=== PATIENT | male | born 1965 | race African-American/Black ===

== ENCOUNTER 2021-09-21 09:31 | Inpatient (IN) | payer OTHER ==
[2021-09-21] VITALS (21 sets, daily range): BP systolic 92–130; BP diastolic 52–91
[~2021-09-21] VITALS: Ht 170.2 cm; Wt 50.5 kg
--- NOTE | ~2021-09-21 | EMS ---
[address] [address] EMS Patient Care Report Name: ELINOR FLORES Room #: REG LEANN Saeed#: [id number] Admission: 09/21/21 Attend Phys: Discharge: Date of : 69 Report #: [id number] THIS REPORT FOR: //name// Report Transmitted: 09/21/2021 12:08 EMS Care Summary [place], [place]/[facility] Incident [id number] @ 09/21/2021 08:58 Incident Location [id number] [place] [address] 513 Patient ELINOR FLORES Male, 56 Years 1965 Patient Address [address] [place] [address] [address] [place] [address] Patient History Diabetes,Gastro-Esophageal Reflux Disease (GERD),Anemia,Dialysis, Patient Allergies No known allergies, Chief Complaint chills Disposition Transported No Lights/[place] Dispatch Reason Overdose/Poisoning/Ingestion Transported To [facility] Narrative pt found in bed a&o. pt is a dialysis pt that went to dialysis this AM but they stopped tx 1 hr in b/c pt was shivering too much. pt does not have fever but is shivering uncontrollably. he states he has no other symptoms. pt did have a syncopal episode from a standing position approx 5 hours ago but he did not go to ER, he refused. pt now agrees to go only because, "I'm done [address] [address] EMS Patient Care Report Name: ELINOR FLORES Room #: REG M.R.#: [id number] Admission: 09/21/21 Attend Phys: Discharge: Date of : 69 Report #: [id number] sleeping and they keep saying I need to go". Pt to cot, tx as listed in flow chart. transport w/o change. report to engineering secretary. 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,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: 2 Device: Nasal Cannula (NC) Response: UnchangedSucceeded, 08:55,Call Received 08:55,Dispatch Notified 08:58,Dispatched 08:59,En Route 09:03,On Scene 09:05,At Patient 09:05,Stretcher,Response: Unchanged 09:05,ALS Assessment,Response: Unchanged 09:08,BP: 106/67 M,PULSE: 115,RR: 22 R,SPO2: 95 Ox,ETCO2: ,B,PAIN: 0,GCS: 15, 09:13,3-Lead ECG,Response: Unchanged 09:14,IV Therapy - Saline Lock 10cc 20 ga Site: Hand-Left,Response: UnchangedSucceeded, 09:16,Depart Scene 09:24,At Destination 09:39,Call Closed Disclaimer v1.1 Copyright 2020 [employer] This EMS Care Summary contains data elements from the applicable legal record (which may be displayed differently). It is designed to provide pertinent [facility] [address] [place] [address] EMS Patient Care Report Name: ELINOR FLORES Room #: REG [facility].#: [id number] Admission: 09/21/21 Attend Phys: Discharge: Date of : 69 Report #: [id number] information for the following purposes: continuity of care, clinical quality, and state data reporting. The complete legal record is available to ED staff and administrators of the receiving hospital in [employer] Patient Tracker. All data is provided "as is."
[2021-09-21 11:10] LABS: ABSOLUTE NEUTROPHILS 11.5 thou/uL (1.4-8.2); BASOPHILS 0.7 % (0.0-2.0); HEMATOCRIT 31.7 % (42.0-52.0); HEMOGLOBIN 9.9 gm/dL (14.0-18.0); LYMPHOCYTES 5.1 % (24.0-44.0); MCHC 31.1 g/dL (28.0-37.0); MCV 93.1 fL (80.0-100.0); MONOCYTES 3.1 % (1.0-8.0); PLATELET COUNT 95 thou/uL (150-400); POLYS 91.1 % (36.0-66.0); RDW 15.4 % (10.5-14.5); WBC 12.6 thou/uL (4.0-11.0)
[2021-09-21 11:22] LABS: CREATININE 9.5 mg/dL (0.7-1.3); POTASSIUM 5.7 mmol/L (3.5-5.1)
[2021-09-21 11:27] LABS: APTT 37.5 Seconds (24.5-32.8); INR 1.08; PROTIME 11.7 Seconds (10.5-12.1)
[2021-09-21 11:32] LABS: TOTAL BILIRUBIN 0.4 mg/dL (0.2-1.0); TOTAL PROTEIN 7.8 g/dL (6.4-8.2)
[2021-09-21 12:03] LABS: URINE BILIRUBIN NEGATIVE (Negative); URINE BLOOD 3+ (Negative); URINE CLARITY CLEAR; URINE COLOR YELLOW; URINE GLUCOSE-RANDOM* 1+ (Negative); URINE KETONES NEGATIVE (Negative); URINE LEUKOCYTES-REFLEX NEGATIVE (Negative); URINE NITRITE-REFLEX NEGATIVE (Negative); URINE PROTEIN (DIPSTICK) 2+ (Negative); URINE SPECIFIC GRAVITY 1.025 (1.005-1.035); URINE UROBILINOGEN 0.2 E.U./dl (0.2-1.0)
[2021-09-21 12:17] LABS: SQUAMOUS 4-10 Moderate /LPF (0-3)
[2021-09-21 12:18] LABS: CASTS None Seen /LPF (None Seen); URINE WBC-REFLEX 0-5 Rare /HPF (0-5)
[2021-09-21 12:19] LABS: BACTERIA-REFLEX 1-9 Few /HPF (None Seen); CRYSTALS None Seen /LPF (None Seen)
[2021-09-21] MEDS ORDERED: SODIUM BICARBO650 M3 PO (13:48)
[2021-09-21] MEDS ORDERED: RENVELA0.8 GM PO (13:48)
[2021-09-21] MEDS ORDERED: LIPITOR40 MG PO (13:49)
[2021-09-21] MEDS ORDERED: OMEPRAZOLE40 MG PO (13:49)
[2021-09-21] MEDS ORDERED: GABAPENTIN100 MG PO (13:49)
[2021-09-21] MEDS ORDERED: LOPERAMIDE2 MG PO (13:49)
[2021-09-21] MEDS ORDERED: IPRAT-ALBUT 0.5-3 ML INH (13:49)
[2021-09-21] MEDS ORDERED: IRON325 M1 PO (13:50)
[2021-09-21] MEDS ORDERED: TYLENOL325 MG PO (13:51)
[2021-09-21] MEDS ORDERED: FLOMAX0.4 MG PO (13:51)
[2021-09-21] MEDS ORDERED: LANTUS SUBQ (13:51)
--- NOTE | 2021-09-21 15:44 | EKG ---
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
[2021-09-21 16:57] LABS: FOLIC ACID 14.5 ng/mL (8.6-58.9)
[2021-09-21 17:28] LABS: % SATURATION 14 % (20-39); IRON 24 ug/dL (65-175); TIBC 170 ug/dL (250-450)
--- NOTE | 2021-09-21 18:15 | NUR ---
VAT CONSULTED FOR CVL PLACEMENT. LEFT 6FR TL JACC CATHETER INSERTED, X1 STICK. ALL 3 LUMENS FLUSH AND RETURN BLOOD. AWAITING CXR FOR TIP LOCATION. PT TOLERATED WELL. TRIMMED 20CM/2CM EXTERNAL.
--- NOTE | 2021-09-21 19:16 | NUR ---
RADIOLOGY REPORT CVL TIP OVERLIES JUST DISTAL TO [facility]. RELEASED LINE, PER HOSPITAL VASCULAR ACCESS POLICY.
--- NOTE | 2021-09-21 19:20 | NUR ---
PT ARRIVED FROM ER VIA CART. PT WAS ON RA, APPEARED TO HAVE MOMENTS OF CONFUSION. PT WAS CONNECTED TO ICU MONITOR AND ASSESSED PER ICU PROTOCOL. LIQUID GREEN STOOL NOTED. TEMP 103 ON ARRIVAL TO ICU.
[2021-09-22] VITALS (37 sets, daily range): BP systolic 64–218; BP diastolic 27–187
--- NOTE | 2021-09-22 00:48 | NUR ---
PT TRANSFERED TO AND FROM CT VIA WHEELCHAIR WITH NO COMPLICATIONS.
[2021-09-22 05:35] LABS: HEMATOCRIT 28.1 % (42.0-52.0); HEMOGLOBIN 9.1 gm/dL (14.0-18.0); MCHC 32.3 g/dL (28.0-37.0); MCV 92.7 fL (80.0-100.0); PLATELET COUNT 91 thou/uL (150-400); RBC 3.03 mil/uL (4.50-6.00); RDW 15.3 % (10.5-14.5); WBC 8.2 thou/uL (4.0-11.0)
[2021-09-22 05:44] LABS: CALCIUM 8.5 mg/dL (8.5-10.1); CREATININE 10.4 mg/dL (0.7-1.3); MAGNESIUM 2.2 mg/dL (1.8-2.4)
[2021-09-22 06:04] LABS: POTASSIUM 6.1 mmol/L (3.5-5.1)
[2021-09-22 06:07] LABS: GLYCOHEMOGLOBIN (HGB A1C) 8.1 % (4.8-5.6)
[2021-09-22 07:18] LABS: ABSOLUTE NEUTROPHILS 7.2 thou/uL (1.4-8.2); ANISOCYTOSIS 1+; PLATELET ESTIMATE DECREASED; POIKILOCYTOSIS 1+
--- NOTE | 2021-09-22 09:52 | NUR ---
ASSUMED CARE OF PT AT 0700 CASE MANAGEMENT CALLED AND SPOKE TO THE FACILITY AND THEY WANTED US TO KNOW HE IS PRONE TO HAVING SEIZURES.
--- NOTE | 2021-09-22 12:06 | NUR ---
Case opened to follow for dc planning. Pt is currently in ICU with sepsis/uti/esrd. He is a [facility] care resident at [facility]. He would like cm to contact his brother to advise of his admission. Message left for his brother Ricardo. Clinical updated faxed to [facility] admissions and they confirmed they are holding his bed. He is a dialysis pt and dialyzes at their onsite [facility]. He is up ad nelson at the facility and has had his two covid vaccines. 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 The facility also notes he has had issues with seizures. Medically team updated in rounds. Will follow.
[2021-09-23] VITALS (35 sets, daily range): BP systolic 79–162; BP diastolic 51–110
--- NOTE | 2021-09-23 06:45 | NUR ---
Patient making some progress towards outcome goals. Vital signs and rhythm stable. Stool negative for cdiff. Incontinent loose stools. Planned insertion of temporary dialysis catheter.
--- NOTE | 2021-09-23 07:06 | EKG ---
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
--- NOTE | 2021-09-23 12:22 | NUR ---
PT IS SCHD FOR CVC PLACEMENT VIA IR; HE REMAINS NPO UNTIL THE CVC INSERTION. THIS RN CALLS IR FOR AN UPDATE ON THE SCHD BUT THEY ARE NOT READY AT THIS TIME.
--- NOTE | 2021-09-23 12:47 | 2DMMODE ---
[facility] [place] [address] 2 D/M-MODE ECHOCARDIOGRAM Name: ELINOR FLORES Room #: 239-P ADM IN M.R.#: [id number] Admission: 09/21/21 Attend Phys: Steffanie Jacques MD Discharge: Date of : 69 Report #: [id number] THIS REPORT FOR: cc: Chato Thorpe MD, Srinath MD Lundgren,Sukumar Arita MD [facility] ~ APPROVED REPORT Study performed: 09/23/2021 10:26:31 EXAM: Comprehensive 2D, Doppler, and color-flow Echocardiogram Patient Location: ICU Room #: 239 Status: routine BSA: 1.66 HR: 97 bpm BP: 133/88 mmHg Rhythm: NSR Other Information Study Quality: Good Indications Febrile, tachycardia, sepsis, bacteremia. Hx: ESRD, COPD, DM. 2D Dimensions IVSd: 9.04 (7-11mm) LVOT Diam: 19.90 (18-24mm) LVDd: 47.61 mm PWd: 9.25 (7-11mm) Ascending Ao: 25.23 (22-36mm) LVDs: 36.93 (25-40mm) Left Atrium: 35.49 (27-40mm) Aortic Root: 31.17 mm Volumes Left Atrial Volume (Systole) Single Plane 4CH: 39.56 mL Single Plane 2CH: 43.89 mL LA ESV Index: 28.00 mL/m2 Aortic Valve AoV Peak Dexter.: 1.21 m/s AO Peak Gr.: 5.87 mmHg LVOT Max P.24 mmHg LVOT Max V: 0.90 m/s ROQUE Vmax: 2.31 cm2 [facility] [address] [place] [address] 2 D/M-MODE ECHOCARDIOGRAM Name: ELINOR FLORES Room #: 239-P [facility]#: [id number] Admission: 09/21/21 Attend Phys: Zach Luis Discharge: Date of : 69 Report #: [id number] Mitral Valve E/A Ratio: 0.8 MV Decel. Time: 156.98 ms MV E Max Dexter.: 0.72 m/s MV A Dexter.: 0.91 m/s MV PHT: 45.53 ms IVRT: 71.51 ms Pulmonary Valve PV Peak Dexter.: 0.81 m/s PV Peak Gr.: 2.65 mmHg Tricuspid Valve TR Peak Dexter.: 2.44 m/s RAP Estimate: 5.00 mmHg TR Peak Gr.: 24.00 mmHg PA Pressure: 29.00 mmHg Left Ventricle The left ventricle is normal size. There is normal LV segmental wall motion. There is normal left ventricular wall thickness. The left ventricular systolic function is normal. LVEF is 50-55%. Mild diastolic dysfunction Right Ventricle The right ventricle is normal size. The right ventricular systolic function is normal. Atria The left atrium size is normal. The right atrium size is normal. Several ovoid, irregular bordered masses within right atrium, largest 1.9cm in diameter. Some masses are fixed and adherent to right atrial free wall, others are highly mobile. Findings most consistent with thromus. Aortic Valve The aortic valve is normal in structure, trileaflet No aortic regurgitation is present. There is no aortic valvular stenosis. Mitral Valve The mitral valve is normal in structure. Mild mitral regurgitation. Tricuspid Valve The tricuspid valve is normal in structure. Trace tricuspid regurgitation. Estimated pulmonary artery pressure of [facility] [address] [place] [address] 2 D/M-MODE ECHOCARDIOGRAM Name: ELINOR FLORES Room #: 239-P ADM IN ..#: [id number] Admission: 09/21/21 Attend Phys: Zach Luis Discharge: Date of : 69 Report #: [id number] 30mmHg. Pulmonic Valve The pulmonary valve is normal in structure. Trace pulmonic regurgitation. Great Vessels The aortic root is normal in size. The ascending aorta is normal in size. IVC is normal in size and collapses >50% with inspiration. Pericardium Trace pericardial effusion. Critical Notification Critical Value: Yes Physician Notified Date: 09/23/2021 <Conclusion> The left ventricular systolic function is normal. There is normal LV segmental wall motion. LVEF is 50-55%. Mild diastolic dysfunction The right atrium size is normal. Several ovoid, irregular bordered masses within right atrium, largest 1.9cm in diameter. Some masses are fixed and adherent to right atrial free wall, others are highly mobile. Findings most consistent with thromus. The aortic valve is normal in structure, trileaflet. No aortic regurgitation or stenosis The mitral valve is normal in structure. Mild mitral regurgitation. Trace tricuspid regurgitation. Estimated pulmonary artery pressure of 30mmHg. Trace pericardial effusion. <ELECTRONICALLY SIGNED> By: Sukumar Serrano MD, FACC 09/23/21 1246 1246 1246 Sukumar Serrano MD, FACC /INF
--- NOTE | 2021-09-23 12:55 | NUR ---
PT HAS HEPARIN DRIP ORDERED PER CARDIOLOGY FOLLOWING RESULTS FROM AN ECHO THIS AM. VINICIO MIRANDA REQUESTS THE HEPARIN TO BE PLACED ON HOLD UNTIL THE CVC FOR HD IS PLACED IN IR. CARDIOLOGY IS NOTIFIED OF THIS REQUEST AND GIVES ORDERS TO HOLD HEPARIN UNTIL THE CVC IS PLACED.
--- NOTE | 2021-09-23 15:40 | NUR ---
PT TO HAVE TEMP DIALYSIS CATHETER PLACE. PT IS ON IV VANC AND ZOSYN. UPDATES WERE SENT TO [facility] YESTERDAY AND THEY ARE HOLDING PT'S BED. PT DOES DIALYSIS THERE MWF. PLAN WOULD BE FOR PT TO RETURN TO [facility] ONCE MEDICALLY STABLE. CM FOLLOWING REGARDING DC PLANNING.
--- NOTE | 2021-09-23 17:07 | NUR ---
NOTIFIED NEPHROLOGY THAT THE HEPARIN DRIP IS CAUSING EXCESSIVE BLEEDING FROM THE CVC SITE PLACED TODAY PER IR. ORDERS TO HOLD THE HEPARIN GTT UNTIL DIALYSIS IS COMPLETE.
--- NOTE | 2021-09-23 23:58 | HC ---
[facility] [place] [address] CONSULTATION Name: ELINOR FLORES Room #: 239-P ADM IN M.R.#: [id number] Admission: 09/21/21 Attend Phys: Steffanie Jacques MD Discharge: Date of : 69 Report #: [id number] THIS REPORT FOR: cc: Chato Thorpe MD, Srinath MD Geha,Trevon Collins MD ~ DATE OF SERVICE: 09/21/2021 INFECTIOUS DISEASES CONSULTATION REASON FOR CONSULTATION: I was asked to evaluate concerning sepsis. HISTORY OF PRESENT ILLNESS: The patient is a 56-year-old with underlying history of diabetes and end-stage renal disease. He has been residing at [facility]. He states to me that he has been there several months. He was homeless prior to this. He has a tunneled dialysis catheter in the right chest, had been in there for approximately 3 months. He had acute onset of rigors earlier this morning, brought in to the Emergency Room and found to be febrile, tachycardic. He has had some neck pain. There is report that the patient did have a fall after becoming lightheaded the previous morning, but he states differently. He has had no headache. Denies any visual changes. No cough or sputum production. He states that his neck has been bothering for the last 24 hours. When we came in, he was hyperkalemic and was given lactulose. He has had loose stools since, but the patient also reports that he has chronic diarrhea. He has had no other skin rashes or wounds. A 14-point review is negative other than what has been described above. PAST MEDICAL HISTORY: End-stage renal disease, anemia, diabetes, gastroesophageal reflux. ALLERGIES: None known. MEDICATIONS: As noted on his MAR, having been given ceftriaxone, Zosyn and vancomycin. FAMILY HISTORY: Negative for tuberculosis. SOCIAL HISTORY: Smoker of cigarettes. No significant alcohol intake. PHYSICAL EXAMINATION: GENERAL: He is febrile and tachycardic. He is alert and cooperative. He is very thin. He is incontinent of liquid stool. He had a mass to his right forehead. He states it is longstanding, not lipoma. SKIN: Without rash or decubitus. No palpable adenopathy. Eyes without scleral icterus. Mouth without mucositis. [address] [address] CONSULTATION Name: ELINOR FLORES Room #: 239-P [facility] IN M.R.#: [id number] Admission: 09/21/21 Attend Phys: Steffanie Jacques MD Discharge: Date of : 69 Report #: [id number] NECK: Although he was tender upon moving his neck, he is supple. LUNGS: Clear to auscultation. HEART: Regular without murmur, gallop or rub. ABDOMEN: Soft, nontender. No hepatosplenomegaly or mass. Right chest tunneled dialysis catheter site without drainage or erythema. No tenderness. EXTREMITIES: Without clubbing, cyanosis or edema. NEUROLOGIC: Strength in the upper and lower extremities was symmetric and within normal limits. Cranial nerves intact. Mood without anxiety. LABORATORY DATA: Reviewed. Microbiology reviewed. Chest x-ray reviewed. IMPRESSION: A 56-year-old with end-stage renal disease, diabetic, presents with high fever source of which is not clear at this point, his chest x-ray was clear. Urinalysis is unremarkable. His abdomen was soft and he had no evidence of hepatitis or liver abnormality. He does have mild anemia, thrombocytopenia and leukocytosis. Concerned about central venous catheter infection versus intraabdominal, changes versus possible colitis. Question whether he has soft tissue injury of his neck with his fall yesterday. This will need to be further evaluated. RECOMMENDATIONS: We will continue board antibiotic coverage. Follow neck symptoms closely. We would image to ensure no fractures. Did not get the sense we are dealing with meningitis. We will await blood cultures. Continue with broad antibiotic coverage. Check stool sample. We will discuss with nursing at the bedside regarding overall plan of care. <ELECTRONICALLY SIGNED> By: Trevon Bermudez MD 09/23/21 2358 0008 Trevon Bermudez MD /nt
[2021-09-24] VITALS (19 sets, daily range): BP systolic 94–146; BP diastolic 56–86
--- NOTE | 2021-09-24 00:36 | NUR ---
HEPARIN GTT RESUMED AT 1944.
[2021-09-24 02:22] LABS: BASOPHILS 0.8 % (0.0-2.0); EOSINOPHILS 0.4 % (0.0-3.0); HEMATOCRIT 25.4 % (42.0-52.0); HEMOGLOBIN 8.2 gm/dL (14.0-18.0); LYMPHOCYTES 17.3 % (24.0-44.0); MCH 29.2 pg (26.0-34.0); MCHC 32.3 g/dL (28.0-37.0); MCV 90.5 fL (80.0-100.0); MONOCYTES 11.3 % (1.0-8.0); PLATELET COUNT 70 thou/uL (150-400); POLYS 70.2 % (36.0-66.0); RDW 15.2 % (10.5-14.5); WBC 5.7 thou/uL (4.0-11.0)
--- NOTE | 2021-09-24 09:35 | NUR ---
Spoke with cardio HPLC CHEMIST informed her of low platelet count, no orders given, continue to monitor.
--- NOTE | 2021-09-24 16:56 | NUR ---
Patient progressing towards goal, has orders to move to CCU tele. Patient on heparin gtt. two bowel movements my shift, appetite poor.
--- NOTE | 2021-09-24 17:52 | NUR ---
Report called to 3W room 361 to nurse Diaz. All questions and concerns were addressed, hepain gtt running at 15units/kg/r
--- NOTE | 2021-09-24 18:50 | NUR ---
PATIENT TRANSFERED TO 361 FROM ICU. A/O X4. ON HEPASRIN GTT. WILL KEEP MONITOR.
[2021-09-25 05:52] VITALS: BP 127/74
[2021-09-25 07:43] VITALS: BP 105/69
--- NOTE | 2021-09-25 08:14 | NUR ---
C/O neck pain , tylenol given with some relief. Pt. has right IJ dialysis cath and left IJTL. Max temp 100.6 and down to 98.8 after tylenol given. Tolerating room air well , no respiratory distress. Cont. on heparin gtt. and adjusted per protocol. No bleeding noted. Ambulated to bathroom with use of gait belt and walker, pt. is unsteady on his feet. Bed alarm on for safety. Incontinent of bm this am.
[2021-09-25 08:24] LABS: HEMATOCRIT 26.6 % (42.0-52.0); HEMOGLOBIN 8.6 gm/dL (14.0-18.0); MCH 29.1 pg (26.0-34.0); MCHC 32.2 g/dL (28.0-37.0); MCV 90.1 fL (80.0-100.0); RBC 2.96 mil/uL (4.50-6.00); RDW 15.4 % (10.5-14.5)
[2021-09-25 08:28] LABS: ALBUMIN 2.2 g/dL (3.4-5.0); CALCIUM 7.9 mg/dL (8.5-10.1); CREATININE 7.2 mg/dL (0.7-1.3); POTASSIUM 3.5 mmol/L (3.5-5.1); TOTAL BILIRUBIN 0.3 mg/dL (0.2-1.0); TOTAL PROTEIN 6.4 g/dL (6.4-8.2)
[2021-09-25 09:40] LABS: ABSOLUTE NEUTROPHILS 5.2 thou/uL (1.4-8.2)
[2021-09-25 09:42] LABS: ATYPICAL LYMPHS 4 %
[2021-09-25 09:44] LABS: ANISOCYTOSIS 1+; PLATELET COUNT 63 thou/uL (150-400)
[2021-09-25 11:21] VITALS: BP 120/78
[2021-09-25 15:31] VITALS: BP 109/69
--- NOTE | 2021-09-25 18:54 | NUR ---
PATIENT IS ALERT AND ORIENTED X4 THIS SHIFT. HE IS ON ROOM AIR. PATIENT IS CCTELE AND SINUS RYTHM 80'S. HE IS ON A HEPARIN DRIP RATE IS 19 AT THIS TIME. MOST RECENT ATPP AT 1444 WAS 40.4. APTT IS SCHEDULED TO BE REDRAWN AT 2130. PATIENT HAS HAD THREE LOOSE STOOLS AND WAS GIVEN MEDICATION PER ORDER. PATIENT HAS A MARMOLEJO CATHETER AND HIS URINE HAS BEEN YELLOW. HE HAD 100ML OUT THIS SHIFT. PATIENT HAS NO SKIN ISSUES. PATIENT HAS A DIALYSIS CATH IJ ON THE RIGHT SIDE OF HIS NECK. JEIMYN HAS A LEFT IJ TRIPLE LUMEN. LUMENS ARE PATENT. PATIENT WILL CONTINUE TO BE MONITORED.
[2021-09-26 03:40] VITALS: BP 120/62
[2021-09-26 06:06] LABS: HEP B SURFACE Ab(ANTI-HBS Non Reactive (()); HEPATITIS B SURFACE AG Negative (Negative)
--- NOTE | 2021-09-26 06:23 | NUR ---
Patient progressing towards outcome goals. Vital signs and rythm stable. Denies need for pain medication, has chronic neck pain. Heparin drip infusing per protocol, most recent APTT pending. High fall risks, fallprecautions in place.
[2021-09-26 07:18] VITALS: BP 115/69
[2021-09-26 11:17] VITALS: BP 139/85
--- NOTE | 2021-09-26 15:49 | NUR ---
ROJELIO reviewed chart and spoke with nursing and attending physician. Pt was transferred to from ICU. Pt febrile and on IV abx. Pt has temporary dialysis catheter in place. Plan to place new tunneled catheter prior to discharge. Pt having dialysis today. ROJELIO faxed clinical/therapy notes to [place] for review. ROJELIO is following to assist as needed with discharge planning.
[2021-09-26 16:42] VITALS: BP 130/81
--- NOTE | 2021-09-26 18:21 | NUR ---
pt is progressing towards care. continue to be on heparin drip, therapeutic so far, will check aptt tmr. had dialysis today. pt refuse his insulin and selvamar for lunch and dinner. hensley cath d/c. fall precautions in place. will continue to monitor
[2021-09-26 19:03] VITALS: BP 114/65
[2021-09-27 04:29] VITALS: BP 143/77
[2021-09-27 05:24] LABS: HEMATOCRIT 25.7 % (42.0-52.0); HEMOGLOBIN 8.3 gm/dL (14.0-18.0); MCHC 32.2 g/dL (28.0-37.0); MCV 90.2 fL (80.0-100.0); RBC 2.85 mil/uL (4.50-6.00); RDW 14.9 % (10.5-14.5); WBC 13.7 thou/uL (4.0-11.0)
[2021-09-27 05:48] LABS: PLATELET COUNT 165 thou/uL (150-400)
--- NOTE | 2021-09-27 05:54 | NUR ---
PT MAKING SLOW PROGRESS TOWARDS GOALS. NOTED MILD ELEVATION IN TEMPERATURES 99.8 AND 99.3 ORALLY OVERNIGHT. CONTINUE TO MONITOR.
[2021-09-27 06:12] LABS: ALBUMIN 2.3 g/dL (3.4-5.0); CALCIUM 8.1 mg/dL (8.5-10.1); TOTAL BILIRUBIN 0.4 mg/dL (0.2-1.0); TOTAL PROTEIN 7.4 g/dL (6.4-8.2)
[2021-09-27 07:31] LABS: ABSOLUTE NEUTROPHILS 8.5 thou/uL (1.4-8.2)
[2021-09-27 07:32] LABS: ATYPICAL LYMPHS 4 %; PLATELET ESTIMATE NORMAL
[2021-09-27 09:13] VITALS: BP 143/86
--- NOTE | 2021-09-27 09:29 | TEE ---
[facility] [place] [address] TRANSESOPHAGEAL ECHOCARDIOGRAM Name: ELINOR FLORES Room #: 361-P ADM IN M.R.#: [id number] Admission: 09/21/21 Attend Phys: Steffanie Jacques MD Discharge: Date of : 69 Report #: [id number] THIS REPORT FOR: cc: Chato Thorpe MD, Srinath MD Santiago, Patrick MD [facility] ~ APPROVED REPORT Study performed: 09/27/2021 07:37:57 EXAM: Comprehensive 2D, Doppler, and color-flow Echocardiogram Patient Location: In-Patient Room #: 361 Status: routine BSA: 1.63 HR: 100 bpm BP: 158/90 mmHg Rhythm: Tachycardia Indications Thrombus Echo Enhancing Agent Indication: Rule out Shunt Agent(s) / Amount(s) Used: Agitated Saline 7 cc Procedure After obtaining informed consent, patient underwent transesophageal echo in the [employer]. Type of Sedation : Conscious Sedation Sedation was administered by Nurse. Sedation start time: 756 Case end Time: 802 Sedation was achieved intravenously with: Versed (4mg) Fentanyl (50mcg) Transesophageal probe was inserted and advanced into esophagus without difficulty by juju Gonzalez MD. Echo enhancement indication: R/O Septal defect. Echo enhancement agent administered: Agitated Saline The MYLENE was performed without complications. Throughout the procedure, the blood pressure, pulse oximetry, cardiac rhythm, and rate were monitored. The patient tolerated the procedure without adverse effects. Recovery from conscious sedation was uneventful and vital signs were [facility] [address] [place] [address] TRANSESOPHAGEAL ECHOCARDIOGRAM Name: ELINOR FLORES Room #: 361-P [facility] IN .R.#: [id number] Admission: 09/21/21 Attend Phys: Zach Luis Discharge: Date of : 69 Report #: [id number] stable. Left Ventricle The left ventricle is normal size. There is normal LV segmental wall motion. There is normal left ventricular wall thickness. The left ventricular systolic function is normal. The left ventricular ejection fraction is within the normal range. LVEF is 55-60%. Right Ventricle The right ventricle is normal size. The right ventricular systolic function is normal. Atria The left atrium size is normal. No thrombus is visualized in the left atrium or appendage. Injection of contrast documented no interatrial shunt. The right atrium size is normal. Large thrombus is present in the right atrium measuring 2.3cmX2.5cm Aortic Valve The aortic valve is normal in structure. No aortic regurgitation is present. There is no aortic valvular stenosis. Mitral Valve The mitral valve is normal in structure. Mild mitral regurgitation. No evidence of mitral valve stenosis. Tricuspid Valve The tricuspid valve is normal in structure. Trace tricuspid regurgitation. Pulmonic Valve The pulmonary valve is normal in structure. There is no pulmonic valvular regurgitation. Great Vessels The aortic root is normal in size. Pericardium There is no pericardial effusion. <Conclusion> Consent was obtained Timeout performed After appropriate sedation esophageal probe was advanced without difficulty Normal left ventricle size/function [facility] [address] [place] [address] TRANSESOPHAGEAL ECHOCARDIOGRAM Name: ELINOR FLORES Room #: 361-P ADM IN M.R.#: [id number] Admission: 09/21/21 Attend Phys: Zach Luis Discharge: Date of : 69 Report #: [id number] Ejection fraction 55% Normal right ventricle size/function Normal atrial size Large 2.3 x 2.5 cm mass compatible with a thrombus attached to the lateral wall of the right atrium, the tip of this mass is mobile. Normal aortic/mitral valve structure and function and no obvious of vegetation detected Tricuspid valve normal structure, no obvious vegetation detected Pulmonary valve not well seen but no obvious mass detected No evidence of ASD/VSD by color flow/bubble study No pericardial effusion Normal aortic root size Patient tolerated procedure well <ELECTRONICALLY SIGNED> By: Juju Gonzalez MD, FACC 09/27/21927 7 7 Juju Gonzalez MD, FACC /INF
--- NOTE | 2021-09-27 11:09 | NUR ---
ROJELIO reviewed chart and spoke with nursing and attending physician. Pt had MYLENE earlier today. Pt is on IV abx and heparin gtt. Pt will need dialysis catheter placed prior to discharge. Pt has temporary dialysis catheter in place. SW met with pt at bedside to confirm discharge plan. Pt is agreeable. ROJELIO reviewed authorized contact. Pt's dtr, Regina, is listed as a contact. Pt approved. ROJELIO updated [facility] admissions liaison. ROJELIO is following to assist as needed with discharge planning.
[2021-09-27 11:17] VITALS: BP 141/78
[2021-09-27 13:20] LABS: INR 1.51; PROTIME 16.1 Seconds (10.5-12.1)
[2021-09-27 13:25] LABS: APTT 58.1 Seconds (24.5-32.8)
--- NOTE | 2021-09-27 15:33 | NUR ---
1410 PT TAKEN DOWN FOR EGD, WITH HIM. CONSENTS SIGNED BY PT
--- NOTE | 2021-09-27 15:34 | NUR ---
CARE ASSUMED THIS AM, PT WAS TAKNE DOWN FOR MYLENE. BACK AROUND 10AM. VITALS AND ASSESSMENT STABLE. TEMPORARY DIALYSIS CATH IN PLACE AND PICC WELL. PT IS INCONTINENT AT TIMES. CONTINUE TO HAVE DIARRHEA. REFUSE NOON SELVEMAR. ON ROOM AIR, ALERT AND ORIENTED X4. FALL PRECAUTIONS IN PLACE. WILL CONTINUE TO MONITOR
[2021-09-27 19:38] VITALS: BP 141/80
[2021-09-28 00:06] LABS: HEMATOLOGY COMMENTS Note: (()); HEMOGLOBIN 8.3 g/dL (13.0-17.7)
[2021-09-28 04:22] VITALS: BP 114/76
[2021-09-28 05:54] LABS: APTT 45.7 Seconds (24.5-32.8); INR 1.67; PROTIME 17.8 Seconds (10.5-12.1)
--- NOTE | 2021-09-28 06:12 | NUR ---
PT MAKING SLOW PROGRESS TOWARDS GOALS. AFEBRILE OVERNIGHT. HIGHEST ORAL TEMP WAS 98.9. DENIED ANY CHILLS.
[2021-09-28 07:23] VITALS: BP 140/88
--- NOTE | 2021-09-28 10:46 | NUR ---
Pt malnourished and not eating well. Refuses oral supplements. Please assist with ordering meals. Recommend nephrocaps.
[2021-09-28 11:27] VITALS: BP 106/67
--- NOTE | 2021-09-28 15:27 | NUR ---
ROJELIO reviewed chart and spoke with nursing and attending physician. Pt remains on heparin and IV abx. Pt to have tunneled dialysis catheter placed in IR on Sunday. ROJELIO spoke with Ronna at [facility] to provide update. Per Ronna, the facility should be able to accept pt back if he is ready to discharge over the weekend. ROJELIO spoke with Qian at the [facility] dialysis clinic, who states that pt is able to resume his regular dialysis schedule on Sunday at 0615 if he is discharged back to [facility] over the weekend. ROJELIO notified Sirisha, admissions liaison, of possible weekend discharge. Discharge ppwk will need to be faxed to [facility] and [facility]. The facility will need to be called to coordinate the discharge. Pt will need his chart copied. ROJELIO received consult to check outpatient cost for Eliquis. Pt's meds are ordered from [facility] pharmacy and will need a prescription to send to their pharmacy. Case mgmt is following and is available to assist as needed with discharge planning. [facility]-- or [phone] [facility]--
[2021-09-28 16:15] VITALS: BP 140/80
--- NOTE | 2021-09-28 18:57 | NUR ---
PT IS PROGRESSING TOWARDS CARE, DIALYSIS TODAY. CONTINUE TO BE ON ROOM AIR. NO SIGNS OF DISTRESS. UP TO BSC, X1. HEPARIN DRIP AT 21 UNTIS. NPO AFTER MIDNIGHT FOR DIALYSIS CATHETER. DENIES ANY NEEDS, WILL CONTINUE TO MONITOR
[2021-09-28 19:52] VITALS: BP 89/52
[2021-09-29 05:26] VITALS: BP 104/52
[2021-09-29 06:53] LABS: APTT 49.9 Seconds (24.5-32.8); INR 1.75; PROTIME 18.6 Seconds (10.5-12.1)
[2021-09-29 07:52] VITALS: BP 98/58
--- NOTE | 2021-09-29 08:29 | HC ---
[facility] [place] [address] CONSULTATION Name: ELINOR FLORES Room #: 361-P ADM IN M.R.#: [id number] Admission: 09/21/21 Attend Phys: Steffanie Jacques MD Discharge: Date of : 69 Report #: [id number] THIS REPORT FOR: cc: Chato Thorpe MD, Srinath MD McKittrick,Anibal Herrera MD ~ cc: Garret Fuchs MD, Trevon Bermudez MD, Torin Wooten MD, Niles Flood MD, Blayne Sánchez MD DATE OF SERVICE: 09/28/2021 REASON FOR CONSULTATION: Thrombocytopenia. HISTORY OF PRESENT ILLNESS: The patient is a 56-year-old male who was admitted to the hospital for sepsis. He was brought to [facility] from the dialysis center for an uncontrolled shivering. In the Emergency Department, he was in moderate distress and general body shivering. He had a temperature of 102.4. When he first arrived, his platelets were low in about 95,000 range, it went as low as 63 and we were consulted. In the interim since then, his platelets have been up to 165,000 yesterday and today up to 201,000. The patient has no prior knowledge to himself as low platelet counts. We did request and did review outside records from [facility]. It appears that his platelet counts are usually between about 135,000 and 200,000. Also, since he was first admitted, he had an echocardiogram and appears to have a right atrial thrombus, measuring 2.5 x 2.3 cm. Also, since he was admitted, his B12, folate and iron levels were checked. Also, his baseline coags were normal. The patient also has some chronic diarrhea, has weakness, has fevers and chills, which have now improved. Known specific breathing troubles. Does have some generalized aches and pains. PAST MEDICAL HISTORY: Notable for the recent finding of a right atrial thrombus, presumed sepsis, with methicillin-sensitive Staph aureus, diabetes type 2, chronic diarrhea, peripheral neuropathy, chronic renal failure/end-stage renal disease on dialysis, COPD, also history of multisubstance abuse years ago, also tobacco abuse. SOCIAL HISTORY: Disabled. FAMILY HISTORY: No clot or low platelet counts that he is aware of. MEDICATIONS: At this time in the hospital currently include cefazolin 1 gram post-dialysis, diphenoxylate, Lomotil 1 tab q.i.d. p.r.n. He is on a heparin weight-based protocol. Iron sulfate 325 daily, pantoprazole 40 daily oral, insulin glargine 5 units at bedtime, atorvastatin calcium 40 mg at bedtime, gabapentin 300 at bedtime, budesonide 0.5 mg respiratory therapy b.i.d. [address] [address] CONSULTATION Name: ELINOR FLORES Room #: 361-P [facility] IN M.R.#: [id number] Admission: 09/21/21 Attend Phys: Steffanie Jacques MD Discharge: Date of : 69 Report #: [id number] inhalation, sevelamer carbonate 800 mg with meals, insulin sliding scale, ipratropium albuterol q. 4 hours p.r.n., Tylenol p.r.n., nitroglycerin p.r.n., Zofran p.r.n. PHYSICAL EXAMINATION: VITAL SIGNS: The patient's recent height is 5 feet 7 inches or 170.2 cm, weight has been 121 pounds or 55.2 kilograms on a bed scale. Recent blood pressure is 114/76, pulse of 100, respirations 20, O2 sat 98%, currently afebrile at 98.5. Highest temperature over the last 24 hours is approximately 99, before that it had been up to 102, it has been 102.9 orally in that range. LUNGS: Appear to be mostly clear without any significant rhonchi, wheezes, rales, or labored breathing. HEART: Regular rate, slightly tachycardic. LYMPHATICS: No enlarged lymph nodes. Does have a central line in the IJ space. ABDOMEN: Appear scaphoid. No obvious masses. EXTREMITIES: He is quite anoretic appearing. No obvious skin ulcers on the visible skin. ASSESSMENT AND PLAN: 1. Thrombocytopenia, appears to have resolved, may have been related to methicillin sepsis and also atrial thrombus. No additional workup at this time. 2. Methicillin-sensitive Staphylococcus aureus bacteremia and possible endocarditis. Defer antibiotics to Infectious Disease. 3. Atrial clot seen on transthoracic echo measuring approximately 2.5 mg. Currently on heparin. Did do further chart review and it looks like it is beginning to be evidence that apixaban 2.5 mg twice daily has been used in patients and may be an option compared to warfarin. The 2.5 mg doses because the patient weighs less than 60 pounds. With this, he does not have any bleeding. We will defer duration of management to Cardiology and Infectious Disease. I have also asked the hospitalist doctor to check with renal to see if they feel comfortable with apixaban and the dose in this patient. 4. Anemia, appears to be replete with B12 and folate. Continue monitoring. 5. Diarrhea sounds chronic in nature, has Lomotil available, not sure whether others have looked for malabsorption or other causes. 6. Diabetes type 2, diet and medications. 7. End-stage renal disease, dialysis per renal. 8. Chronic obstructive pulmonary disease management per others with aerosols. 9. Tobacco and substance abuse history. Encouraged cessation. We will continue following. <ELECTRONICALLY SIGNED> By: Anibal Elmore MD 09/29/21 [id number] Anibal Elmore MD /nt
[2021-09-29 12:14] VITALS: BP 81/48
[2021-09-29 19:57] VITALS: BP 81/54
[2021-09-30 05:15] VITALS: BP 102/52
[2021-09-30 06:21] LABS: ABSOLUTE NEUTROPHILS 7.1 thou/uL (1.4-8.2); BASOPHILS 1.6 % (0.0-2.0); EOSINOPHILS 1.1 % (0.0-3.0); HEMATOCRIT 24.2 % (42.0-52.0); HEMOGLOBIN 7.5 gm/dL (14.0-18.0); LYMPHOCYTES 28.5 % (24.0-44.0); MCH 28.7 pg (26.0-34.0); MCHC 31.2 g/dL (28.0-37.0); MCV 91.8 fL (80.0-100.0); MONOCYTES 18.1 % (1.0-8.0); PLATELET COUNT 358 thou/uL (150-400); POLYS 50.7 % (36.0-66.0); RBC 2.63 mil/uL (4.50-6.00); RDW 15.6 % (10.5-14.5); WBC 13.9 thou/uL (4.0-11.0)
[2021-09-30 06:26] LABS: PROTIME 48.3 Seconds (10.5-12.1)
--- NOTE | 2021-09-30 06:32 | NUR ---
PROGRESS PT ALERT AND ORIENTED BUT APPEARS CONFUSD AT TIMES. VSS, HEPARIN GTT INFUSING INTO WITHOUT DIFFICULTY. LEFT IJ TRIPLE LUMEN PICC WITH ONLY PINK PORT FLUSHING VERY DIFFICULT TO DRAW LABS FROM. VOIDED X 2 SMALL AMOUNT NO BM THIS SHIFT. NPO AFTER MIDNITE PENDING TUNNELED DIALYSIS CATHETER PLACEMENT. DIALYSIS NURSE IN AT 6 AM TO PERFORM DIALYSIS.
[2021-09-30 06:34] LABS: ALBUMIN 2.3 g/dL (3.4-5.0); CALCIUM 8.1 mg/dL (8.5-10.1); CREATININE 8.6 mg/dL (0.7-1.3); TOTAL BILIRUBIN 0.2 mg/dL (0.2-1.0); TOTAL PROTEIN 7.6 g/dL (6.4-8.2)
[2021-09-30 07:11] LABS: INR 4.77
[2021-09-30 07:22] VITALS: BP 122/77
[2021-09-30 10:15] LABS: INR 2.15
[2021-09-30 10:16] LABS: PROTIME 22.6 Seconds (10.5-12.1)
[2021-09-30 11:07] VITALS: BP 106/66
[2021-09-30 15:12] VITALS: BP 123/63
--- NOTE | 2021-09-30 17:00 | NUR ---
Patient stated he was leaving and his brother was on his way to pick him up. Informed Dr. Fuchs. Patient signed against medical advice paperwork after nurse explained risks of leaving against medical advice. Brother arrived to room. Left IJ removed, patient layed flat for 5 minutes. No bleeding occurred. Patient was wheeled out to brother's car.
== END 2021-09-30 18:18 | disposition left against medical advice (07) | DRG 314 ==
LOC: ER 09:31 → EROBS 15:26 → 3W 15:26 → ICU 18:44 → 3W 09-24 18:25
PROVIDERS: Emergency Medicine; Internal Medicine; Internal Medicine Nephrology; Nurse Practitioner; Nurse Practitioner Adult Health; Nurse Practitioner Family; Specialist; ADMIT Hospitalist; ATTEND Hospitalist
PROC: 02PAX3Z Removal of Infusion Device from Heart, External Approach (ICD-10-PCS; principal; 2021-09-22)
PROC: 0JPT3XZ Removal of Tunneled Vascular Access Device from Trunk Subcutaneous Tissue and Fascia, Percutaneous Approach (ICD-10-PCS; principal; 2021-09-22)
PROC: 5A1D70Z Performance of Urinary Filtration, Intermittent, Less than 6 Hours Per Day (ICD-10-PCS; 2021-09-22)
PROC: B5181ZA Fluoroscopy of Superior Vena Cava using Low Osmolar Contrast, Guidance (ICD-10-PCS; 2021-09-23)
PROC: B548ZZA Ultrasonography of Superior Vena Cava, Guidance (ICD-10-PCS; 2021-09-23)
PROC: 02HV33Z Insertion of Infusion Device into Superior Vena Cava, Percutaneous Approach (ICD-10-PCS; 2021-09-23)
PROC: 5A1D70Z Performance of Urinary Filtration, Intermittent, Less than 6 Hours Per Day (ICD-10-PCS; 2021-09-23)
PROC: 02PYX3Z Removal of Infusion Device from Great Vessel, External Approach (ICD-10-PCS; 2021-09-23)
PROC: 5A1D70Z Performance of Urinary Filtration, Intermittent, Less than 6 Hours Per Day (ICD-10-PCS; 2021-09-26)
PROC: 5A1D70Z Performance of Urinary Filtration, Intermittent, Less than 6 Hours Per Day (ICD-10-PCS; 2021-09-28)
PROC: B5181ZA Fluoroscopy of Superior Vena Cava using Low Osmolar Contrast, Guidance (ICD-10-PCS; 2021-09-30)
PROC: 02HV33Z Insertion of Infusion Device into Superior Vena Cava, Percutaneous Approach (ICD-10-PCS; 2021-09-30)
PROC: 0JH63XZ Insertion of Tunneled Vascular Access Device into Chest Subcutaneous Tissue and Fascia, Percutaneous Approach (ICD-10-PCS; 2021-09-30)
PROC: B548ZZA Ultrasonography of Superior Vena Cava, Guidance (ICD-10-PCS; 2021-09-30)
PROC: 02PYX3Z Removal of Infusion Device from Great Vessel, External Approach (ICD-10-PCS; 2021-09-30)
DX: T80.211A Bloodstream infection due to central venous catheter, initial encounter (principal); N18.6 End stage renal disease; R65.21 Severe sepsis with septic shock; A41.01 Sepsis due to Methicillin susceptible Staphylococcus aureus; J96.01 Acute respiratory failure with hypoxia; G93.40 Encephalopathy, unspecified; N39.0 Urinary tract infection, site not specified; K21.9 Gastro-esophageal reflux disease without esophagitis; E11.22 Type 2 diabetes mellitus with diabetic chronic kidney disease; D69.6 Thrombocytopenia, unspecified; E11.65 Type 2 diabetes mellitus with hyperglycemia; E78.5 Hyperlipidemia, unspecified; E11.42 Type 2 diabetes mellitus with diabetic polyneuropathy; I51.3 Intracardiac thrombosis, not elsewhere classified; D63.8 Anemia in other chronic diseases classified elsewhere; J44.9 Chronic obstructive pulmonary disease, unspecified; F17.210 Nicotine dependence, cigarettes, uncomplicated; E87.5 Hyperkalemia; R19.7 Diarrhea, unspecified; Z20.822 Contact with and (suspected) exposure to COVID-19; Z79.899 Other long term (current) drug therapy; Y83.8 Other surgical procedures as the cause of abnormal reaction of the patient, or of later complication, without mention of misadventure at the time of the procedure; Y92.89 Other specified places as the place of occurrence of the external cause; Z71.6 Tobacco abuse counseling; Z82.49 Family history of ischemic heart disease and other diseases of the circulatory system
CPT/HCPCS: 10078; 10203; 10779; 10879; 32100; 50455